=== PATIENT | female | born 1980 | race Hispanic/Latino ===

== ENCOUNTER 2018-10-20 07:56 | Day surgery (SDC) | payer OTHER ==
[~2018-10-20] VITALS: Ht 162.6 cm; Wt 45.8 kg
[~2018-10-20 07:56] MED LIST: CREON12 PO; ESOM20CA31 PO; L.AC1CAP6 PO; SODIUM CHLORIDE 0.9% 1000ML 1,000 ML IV ONE
[2018-10-20 09:21] VITALS: BP 109/38
[2018-10-20] MEDS ORDERED: CYAN50008 PO (09:32)
[2018-10-20] MEDS ORDERED: PROPOFOL 10 MG/ML 20ML VIAL IV ONE (11:04)
[2018-10-20 11:25] VITALS: BP 102/51
[2018-10-20 11:30] VITALS: BP 99/51
[2018-10-20] MEDS ORDERED: IPRATROPIUM/ALBUTEROL SULFATE 3 ML SOLUTION IH ONE (11:30)
[2018-10-20 11:41] VITALS: BP 100/51
[2018-10-20 11:54] VITALS: BP 102/64
[2018-10-20] MEDS ORDERED: IPRATROPIUM/ALBUTEROL SULFATE 3 ML SOLUTION IH SCH (12:30)
== END 2018-10-20 12:07 | disposition home or self-care (01) ==
LOC: DAH 07:56 → ENDO 07:56
PROVIDERS: ATTEND Internal Medicine
DX: K85.90 Acute pancreatitis without necrosis or infection, unspecified (principal); K86.9 Disease of pancreas, unspecified; K31.89 Other diseases of stomach and duodenum; Z79.899 Other long term (current) drug therapy; Z98.890 Other specified postprocedural states; Z90.710 Acquired absence of both cervix and uterus; K90.0 Celiac disease; K21.9 Gastro-esophageal reflux disease without esophagitis
CPT/HCPCS: 43237; 43239; 94640; J2704; J7030

== ENCOUNTER → 2019-04-27 | Outpatient (CLI) | payer OTHER ==
[~2019-04-27] MED LIST changes: +CYAN50008 PO; -SODIUM CHLORIDE 0.9% 1000ML 1,000 ML IV ONE
== END | disposition home or self-care (01) ==
LOC: RAH 10:00
PROVIDERS: ATTEND Internal Medicine
DX: R11.2 Nausea with vomiting, unspecified (principal)
CPT/HCPCS: 78264; A9541

== ENCOUNTER 2021-09-13 10:34 | Day surgery (SDC) | payer OTHER ==
[~2021-09-13] VITALS: Ht 160 cm; Wt 46.3 kg
[~2021-09-13 10:34] MED LIST changes: +ACET-2247 PO; +ASCO-440 PO; +BIOT25005 PO; -CYAN50008 PO; -ESOM20CA31 PO; +ESTR1TAB17 PO; +IBUP200C5 PO; -L.AC1CAP6 PO; +MULT-1203 PO; +PANT40TA54 PO; +PROM6.2523 PO
[2021-09-13] MEDS ORDERED: 0.9%NACL 1000ML 1,000 ML IV ONE (10:38)
[2021-09-13 10:49] VITALS: BP 131/71
[2021-09-13] MEDS ORDERED: BUPIVACAINE/PF 0.25% 30ML VIAL IJ SCH (12:00)
[2021-09-13] MEDS ORDERED: TRIAMCINOLONE ACETONIDE 40 MG/ML 1ML VIAL INJ SCH ×2 (12:00→12:30)
[2021-09-13] MEDS ORDERED: LIDOCAINE PF 100MG/5ML (2%) SYRINGE 5ML ONE (12:05)
[2021-09-13] MEDS ORDERED: PROPOFOL 10 MG/ML 20ML VIAL IV ONE (12:06)
[2021-09-13] MEDS ORDERED: BUPIVACAINE/PF 0.25% 30ML VIAL IJ ONE (12:12)
[2021-09-13] MEDS ORDERED: BUPIVACAINE/PF 0.25% 10ML VIAL IJ SCH (12:30)
[2021-09-13 12:40] VITALS: BP 92/50
[2021-09-13 12:45] VITALS: BP 102/54
[2021-09-13 12:50] VITALS: BP 100/62
[2021-09-13 12:55] VITALS: BP 109/60
== END 2021-09-13 13:05 | disposition home or self-care (01) ==
LOC: ENDO 10:34 → DAH 10:34 → ENDO 13:05
PROVIDERS: ATTEND Internal Medicine
DX: K86.1 Other chronic pancreatitis (principal); Z20.822 Contact with and (suspected) exposure to COVID-19; K90.0 Celiac disease; K85.00 Idiopathic acute pancreatitis without necrosis or infection; K31.89 Other diseases of stomach and duodenum; Z90.710 Acquired absence of both cervix and uterus; Z88.0 Allergy status to penicillin; Z88.8 Allergy status to other drugs, medicaments and biological substances; Z79.899 Other long term (current) drug therapy
CPT/HCPCS: 43253; 87635; A4215 ×2; A4216; A4221; A4222; A4223; A4606; A4620; A4649; A4663; C9803; J2001; J2704; J3490; J7030; J3301